=== PATIENT | female | born 1975 | race Caucasian/White ===

== ENCOUNTER 2017-07-21 21:00 | Emergency (ER) | payer OTHER ==
[~2017-07-21] VITALS: Ht 167.6 cm; Wt 78.8 kg
[~2017-07-21 21:00] MED LIST: ALBU10PO INH; BUPR75TA5 PO; BUSP15TA PO; BUSPAR; CEFD300C37 PO; DOCU-131 PO; DOXY1TAB3 PO; HYDR25CA; IBUP-1223 PO; IRBE1TAB37 PO; LISI-167 PO; LURA40TA PO; NITR100C56 PO; OXYC-302 PO; PREN-1 PO; TAMS-11 PO; TRAZ300T2; TRAZ300T2 PO; ZOLP-413 PO
[2017-07-21] MEDS ORDERED: ONDANSETRON 2MG/ML, 2ML ONE (21:28)
[2017-07-21] MEDS ORDERED: morphine SULFATE 10 MG/ML, 1ML ONE (21:28)
[2017-07-21] MEDS ORDERED: MAALOX/HYOSCYAMINE/LIDOCAINE 45 ML BTL ONE (21:29)
[2017-07-21] MEDS ORDERED: ONDANSETRON 2MG/ML, 2ML IVPush ONE (21:30)
[2017-07-21] MEDS ORDERED: MORPHINE SULFATE 4 MG/ML, 1ML IVPush PRN (21:30)
[2017-07-21] MEDS ORDERED: MAALOX/HYOSCYAMINE/LIDOCAINE 45 ML BTL PO ONE (21:30)
[2017-07-21] MEDS ORDERED: SODIUM CHLORIDE 0.9% 1,000ML IVBOLUS ONE (21:30)
[2017-07-21] MEDS ORDERED: SODIUM CHLORIDE FLUSH 10ML SYR IVF ONE (21:30)
[2017-07-21 21:45] LABS: HEMATOCRIT 28.1 % (34.6-47.8); HEMOGLOBIN 9.2 g/dL (11.7-16.4); WHITE BLOOD COUNT 10.5 x10^3/uL (3.4-10)
[2017-07-21 21:53] LABS: PATH.CAST-FLAG NOT PRESENT; SPERM-FLAG NOT PRESENT; SRC-FLAG NOT PRESENT; XTAL-FLAG NOT PRESENT; YLC-FLAG NOT PRESENT
[2017-07-21 21:57] LABS: BLOOD UREA NITROGEN 12 mg/dL (7-18)
[2017-07-21 22:02] LABS: ASPARTATE AMINO TRANSFERASE 7 U/L (15-37)
[2017-07-21] MEDS ORDERED: PROMETHAZINE 25 MG/ML, 1ML ONE (22:28)
[2017-07-21] MEDS ORDERED: PROMETHAZINE 25 MG/ML, 1ML IM ONE (22:30)
[2017-07-21 22:33] VITALS: BP 124/77
== END 2017-07-21 23:11 | disposition home or self-care (01) ==
LOC: ED 21:36
DX: K29.00 Acute gastritis without bleeding (principal); I10 Essential (primary) hypertension; Z86.73 Personal history of transient ischemic attack (TIA), and cerebral infarction without residual deficits
CPT/HCPCS: 36415; 76700; 80053; 81001; 83690; 84703; 85025; 87086; 96361; 96372; 96374; 96375; 99285; J2405; J2550; J7030

== ENCOUNTER 2017-07-24 16:28 | Inpatient (IN) | payer OTHER ==
[~2017-07-24] VITALS: Ht 167.6 cm; Wt 79.5 kg
[2017-07-24] MEDS ORDERED: DICY20TA3 PO (16:59)
[2017-07-24] MEDS ORDERED: FAMO-79 PO (16:59)
[2017-07-24] MEDS ORDERED: ONDA4TAB12 PO (16:59)
[2017-07-24 17:16] LABS: HEMATOCRIT 28.9 % (34.6-47.8); HEMOGLOBIN 9.3 g/dL (11.7-16.4); WHITE BLOOD COUNT 8.5 x10^3/uL (3.4-10)
[2017-07-24 17:29] LABS: BLOOD UREA NITROGEN 12 mg/dL (7-18)
[2017-07-24] MEDS ORDERED: ONDANSETRON 2MG/ML, 2ML IVPush ONE (17:30)
[2017-07-24] MEDS ORDERED: MORPHINE SULFATE 4 MG/ML, 1ML IVPush PRN (17:30)
[2017-07-24] MEDS ORDERED: FAMOTIDINE 20 MG/2 ML IVP ONE (17:30)
[2017-07-24] MEDS ORDERED: SODIUM CHLORIDE 0.9% 1,000ML IVBOLUS ONE (17:30)
[2017-07-24] MEDS ORDERED: SODIUM CHLORIDE FLUSH 10ML SYR IVF ONE (17:30)
[2017-07-24 17:33] LABS: ASPARTATE AMINO TRANSFERASE 7 U/L (15-37)
[2017-07-24] MEDS ORDERED: morphine SULFATE 10 MG/ML, 1ML ONE (17:47)
[2017-07-24] MEDS ORDERED: ONDANSETRON 2MG/ML, 2ML ONE (17:47)
[2017-07-24] MEDS ORDERED: FAMOTIDINE 20 MG/2 ML ONE (17:48)
[2017-07-24 17:59] LABS: PATH.CAST-FLAG NOT PRESENT; SPERM-FLAG NOT PRESENT; SRC-FLAG NOT PRESENT; XTAL-FLAG NOT PRESENT; YLC-FLAG NOT PRESENT
[2017-07-24] MEDS ORDERED: OMNIPAQUE 350 MG/ML, 100ML BOTTLE ONE (19:01)
[2017-07-24] MEDS ORDERED: hydrALAzine 20 MG/ML, 1ML IVPush PRN (21:30)
[2017-07-24] MEDS ORDERED: ONDANSETRON 2MG/ML, 2ML IVPush PRN (21:30)
[2017-07-24 23:00] VITALS: BP 122/82
[2017-07-24] MEDS: HYDROmorphone 2 MG/ML, 1ML IVPush PRN (23:25)
[2017-07-24] MEDS: SODIUM CHLORIDE 0.9% 1,000 ML IV SCH (23:51)
[2017-07-25] MEDS: CEFTRIAXONE PMX 1GM/50ML 50 ML IV SCH ×2 (00:31→22:51)
[2017-07-25 02:00] VITALS: BP 121/80
[2017-07-25 02:30] VITALS: BP 107/72
[2017-07-25] MEDS: HYDROmorphone 2 MG/ML, 1ML IVPush PRN (02:37)
[2017-07-25] MEDS: LORazepam 2 MG/ML, 1ML IVPush PRN ×3 (03:00→19:56)
[2017-07-25 04:55] LABS: HEMATOCRIT 25.2 % (34.6-47.8); HEMOGLOBIN 8.2 g/dL (11.7-16.4); WHITE BLOOD COUNT 6.7 x10^3/uL (3.4-10)
[2017-07-25 05:04] LABS: BLOOD UREA NITROGEN 8 mg/dL (7-18)
[2017-07-25] MEDS ORDERED: PANTOPRAZOLE 40 MG IV IVPush SCH (07:30)
[2017-07-25] MEDS: SODIUM CHLORIDE 0.9% 1,000 ML IV SCH (09:15)
[2017-07-25 10:16] VITALS: BP 110/62
[2017-07-25 11:50] LABS: FERRITIN 4.1 ng/mL (8-252)
[2017-07-25 13:29] VITALS: BP 109/65
[2017-07-25] MEDS: HYDROcodone/APAP 5/325 TABLET PO PRN ×2 (18:30→22:51)
[2017-07-25 20:23] VITALS: BP 126/81
[2017-07-26 01:55] VITALS: BP 99/66
[2017-07-26] MEDS: SODIUM CHLORIDE 0.9% 1,000 ML IV SCH ×2 (02:52→08:58)
[2017-07-26 05:54] LABS: HEMATOCRIT 26.3 % (34.6-47.8); HEMOGLOBIN 8.5 g/dL (11.7-16.4); WHITE BLOOD COUNT 6.7 x10^3/uL (3.4-10)
[2017-07-26 06:00] LABS: ASPARTATE AMINO TRANSFERASE 5 U/L (15-37); BLOOD UREA NITROGEN 6 mg/dL (7-18)
[2017-07-26 08:20] VITALS: BP 152/78
[2017-07-26] MEDS: SUCRALFATE 1 GM/10 ML UDC PO SCH ×2 (09:19→12:08)
[2017-07-26] MEDS ORDERED: SUCR1ORA5 PO (12:13)
[2017-07-26] MEDS ORDERED: ONDA4TAB10 PO (12:21)
[2017-07-26] MEDS ORDERED: METR500T PO (12:21)
[2017-07-26 13:40] VITALS: BP 103/64
== END 2017-07-26 13:30 | disposition home or self-care (01) | DRG 392 ==
LOC: ED 18:32 → EDIP 21:17 → 4WST 23:03 → DCLOUNGE 07-26 13:19
PROVIDERS: ADMIT Family Medicine; ATTEND Family Medicine
DX: R10.9 Unspecified abdominal pain (principal); I11.9 Hypertensive heart disease without heart failure; D64.9 Anemia, unspecified; F12.90 Cannabis use, unspecified, uncomplicated; F31.9 Bipolar disorder, unspecified; K44.9 Diaphragmatic hernia without obstruction or gangrene; N20.0 Calculus of kidney; Z80.6 Family history of leukemia; Z86.73 Personal history of transient ischemic attack (TIA), and cerebral infarction without residual deficits; Z98.51 Tubal ligation status
CPT/HCPCS: 36415; 74177; 74249; 76700; 80048; 80053; 81001; 82728; 83540; 83550; 83690; 83735; 84443; 84466; 85025; 87086; 96361; 96374; 96375; J0696; J1170; J2405; Q9967; C9113; J2060; J7030; S0028

== ENCOUNTER 2018-01-10 02:46 | Emergency (ER) | payer SELFPAY ==
[~2018-01-10] VITALS: Ht 167.6 cm; Wt 72.7 kg
[~2018-01-10 02:46] MED LIST changes: +DICY20TA3 PO; +FAMO-79 PO; +METR500T PO; +ONDA4TAB10 PO; +ONDA4TAB12 PO; +SUCR1ORA5 PO
[2018-01-10 02:48] VITALS: BP 135/80
[2018-01-10 03:26] LABS: HCG UR SG 1.011 (1.003-1.030); MICROSCOPIC AUTO
[2018-01-10] MEDS ORDERED: PROCHLORPERAZINE 5 MG/ML, 2ML ONE (03:26)
[2018-01-10] MEDS ORDERED: MORPHINE SULFATE 4 MG/ML, 1ML ONE (03:27)
[2018-01-10] MEDS ORDERED: MORPHINE SULFATE 4 MG/ML, 1ML IVPush PRN (03:30)
[2018-01-10] MEDS ORDERED: PROCHLORPERAZINE 5 MG/ML, 2ML IVPush ONE (03:30)
[2018-01-10 03:34] LABS: CULTURE INDICATED? YES
[2018-01-10 03:46] LABS: BASOPHILS % (AUTO) 1 % (0-1); EOSINOPHILS # (AUTO) 0.22 x10^3/uL (0-0.4); EOSINOPHILS % (AUTO) 3 % (1-7); LYMPHOCYTES # (AUTO) 3.55 x10^3/uL (1-3.4); LYMPHOCYTES % (AUTO) 43 % (22-44); MD NO; MEAN CORPUSCULAR HEMOGLOBIN 25.9 pg (27.0-34.8); MEAN CORPUSCULAR HGB CONC 33.1 g/dL (32.4-35.8); MEAN CORPUSCULAR VOLUME 78.3 fL (80-100); MEAN PLATELET VOLUME 7.4 fL (7.4-10.4); MONOCYTES # (AUTO) 0.68 x10^3/uL (0.2-0.8); MONOCYTES % (AUTO) 8 % (2-9); NEUTROPHILS # (AUTO) 3.64 x10^3/uL (1.8-6.8); NEUTROPHILS % (AUTO) 45 % (42-75); PLATELET COUNT 292 x10^3/uL (130-400); RED BLOOD COUNT 4.71 x10^6/uL (3.82-5.3)
[2018-01-10 03:51] LABS: ALANINE AMINOTRANSFERASE 18 U/L (12-78); ALBUMIN 3.5 g/dL (3.4-5.0); ANION GAP 8 mmol/L (5-15); CALCIUM 8.6 mg/dL (8.5-10.1); CHLORIDE 111 mmol/L (98-107); CREATININE 1.06 mg/dL (0.55-1.02)
[2018-01-10 03:54] LABS: ALKALINE PHOSPHATASE 58 U/L (45-117); BILIRUBIN,TOTAL 0.6 mg/dL (0.2-1.0); TOTAL PROTEIN 7.2 g/dL (6.4-8.2)
[2018-01-10] MEDS ORDERED: CEFTRIAXONE PMX 1GM/50ML 50 ML IV ONE (04:30)
[2018-01-10 04:51] LABS: AMPHETAMINE SCREEN, URINE Positive (Negative); BARBITURATE SCREEN, URINE Negative (Negative); BENZODIAZEPINE SCREEN, URINE Negative (Negative); CANNABINOID SCREEN, URINE Positive (Negative); COCAINE SCREEN, URINE Negative (Negative); METHADONE SCREEN, URINE Negative (Negative); OPIATE SCREEN, URINE Negative (Negative)
[2018-01-10] MEDS ORDERED: CEFTRIAXONE PMX 1GM/50ML 50 ML ONE (04:54)
[2018-01-10 05:01] LABS: CULTURE INDICATED? YES; MICROSCOPIC INDICATED
== END 2018-01-10 06:43 | disposition home or self-care (01) ==
LOC: ED 06:02
DX: N13.2 Hydronephrosis with renal and ureteral calculous obstruction (principal); N30.90 Cystitis, unspecified without hematuria; F15.120 Other stimulant abuse with intoxication, uncomplicated; I10 Essential (primary) hypertension; F41.9 Anxiety disorder, unspecified; Z86.73 Personal history of transient ischemic attack (TIA), and cerebral infarction without residual deficits; Z87.442 Personal history of urinary calculi; Z88.5 Allergy status to narcotic agent
CPT/HCPCS: 36415; 74176; 80053; 80307; 81001; 81025; 83690; 85025; 87077; 87086; 87186; 96365; 96375; 99285; J0696; J0780

== ENCOUNTER → 2018-02-05 | Outpatient (CLI) | payer MEDICAID | END | disposition home or self-care (01) | LOC: RAD 08:16 | PROVIDERS: ATTEND Urology | DX: N20.0 Calculus of kidney (principal) | CPT/HCPCS: 74018 ==

== ENCOUNTER 2018-02-13 09:00 | Day surgery (SDC) | payer MEDICAID ==
[~2018-02-13] VITALS: Ht 167.6 cm; Wt 68.2 kg
[2018-02-13] MEDS ORDERED: LACTATED RINGERS 1,000 ML IV SCH (09:35)
[2018-02-13 09:38] VITALS: BP 111/73
[2018-02-13 10:02] LABS: INTERNATIONAL NORMALIZED RATIO 0.97 (0.93-1.1)
[2018-02-13] MEDS ORDERED: LURA20TA PO (10:11)
[2018-02-13] MEDS ORDERED: MIDAZOLAM 1 MG/ML, 2ML ONE (10:37)
[2018-02-13] MEDS ORDERED: ONDANSETRON ODT 8 MG ONE (10:40)
[2018-02-13] MEDS ORDERED: FENTANYL PF 250 MCG/5ML ONE (10:40)
[2018-02-13] MEDS ORDERED: CEFAZOLIN 1,000 MG ONE ×2 (10:57→10:58)
[2018-02-13] MEDS ORDERED: LIDOCAINE-MPF 2% ,5ML ONE (10:57)
[2018-02-13] MEDS ORDERED: PROPOFOL 10 MG/ML, 20ML ONE (10:57)
[2018-02-13] MEDS ORDERED: ROCURONIUM 10MG/ML,5ML ONE (10:57)
[2018-02-13] MEDS ORDERED: WATER-INJECTION,STERILE 10 ML IV ONE (10:58)
[2018-02-13] MEDS ORDERED: ACETAMINOPHEN 500 MG TABLET PO ONE (11:00)
[2018-02-13] MEDS ORDERED: FENTANYL PF 100 MCG/2ML IV PRN (11:00)
[2018-02-13] MEDS ORDERED: OxyconTIN ER 10 MG TAB.ER PO ONE (11:00)
[2018-02-13] MEDS ORDERED: PROMETHAZINE 25 MG/ML, 1ML IV PRN (11:00)
[2018-02-13] MEDS ORDERED: OXYcodone 5 MG/5 ML ORAL.SOL UDC PO PRN (11:00)
[2018-02-13] MEDS ORDERED: HALOPERIDOL 5 MG/ML IV PRN (11:00)
[2018-02-13] MEDS ORDERED: LABETALOL 5MG/ML, 20ML IV PRN (11:00)
[2018-02-13] MEDS ORDERED: MEPERIDINE/PF 25MG/0.5ML IVPush PRN (11:00)
[2018-02-13] MEDS ORDERED: HYDROmorphone 1 MG/ML, 1ML IV PRN (11:00)
[2018-02-13] MEDS ORDERED: hydrALAzine 20 MG/ML, 1ML IV PRN (11:00)
[2018-02-13] MEDS ORDERED: GABAPENTIN 300 MG CAPSULE PO ONE (11:00)
[2018-02-13] MEDS ORDERED: ONDANSETRON ODT 8 MG PO ONE (11:00)
[2018-02-13] MEDS ORDERED: MEPERIDINE/PF 100 MG/ML ONE (11:47)
[2018-02-13] MEDS ORDERED: DEXAMETHASONE 4 MG/ML, 1ML ONE ×2 (12:07)
[2018-02-13] MEDS ORDERED: KETOROLAC 30 MG/1 ML ONE (13:00)
[2018-02-13] MEDS ORDERED: MEPERIDINE/PF 25MG/0.5ML ONE (13:44)
== END 2018-02-13 15:30 ==
LOC: OUT 09:00
PROVIDERS: ATTEND Urology
DX: N20.2 Calculus of kidney with calculus of ureter (principal); J45.909 Unspecified asthma, uncomplicated; I10 Essential (primary) hypertension; Z88.8 Allergy status to other drugs, medicaments and biological substances; Z91.010 Allergy to peanuts
CPT/HCPCS: 36415; 52356; 74018; 76000; 81025; 85610; 85730; 93005; C1758; C1769; C2617; J0690; J1100; J1885; J2175; J2250; J2704; J3490; J7120; Q0162; J3010